=== PATIENT | male | born 1945 | race Caucasian/White ===

== ENCOUNTER 2020-10-25 10:41 | Inpatient (IN) | payer MEDICARE ==
[~2020-10-25] VITALS: Ht 172.7 cm; Wt 95.7 kg
[~2020-10-25 10:41] MED LIST: ASPIRIN EC81 MG PO; FLONASE 0.05% N16 GM; MULTI-VITAMIN1 EACH PO; PROTONIX40 MG PO; RANEXA500 MG PO; TYLENOL 325MG325 MG PO
[2020-10-25 11:39] LABS: HEMOGLOBIN 15.5 gm/dl (14.0-17.5); RED BLOOD COUNT 4.69 M/UL (4.20-5.50); WHITE BLOOD COUNT 12.6 K/UL (4.5-11.0)
[2020-10-25 13:21] LABS: BUN/CREATININE RATIO 11 (0-10)
--- NOTE | 2020-10-27 13:39 | NUR ---
SEVERAL ATTEMPTS TRIED BY TWO NURSES AND CANNOT GET PT SEPTUM AREA. DR. RAMACHANDRAN NOTIFIED
[2020-10-28 08:36] LABS: HEMOGLOBIN 16.3 gm/dl (14.0-17.5); RED BLOOD COUNT 4.94 M/UL (4.20-5.50); WHITE BLOOD COUNT 11.7 K/UL (4.5-11.0)
[2020-10-28 09:02] LABS: BUN/CREATININE RATIO 19 (0-10)
[2020-11-02] MEDS ORDERED: HYDROCODON-ACE1 EAC4 PO (11:02)
== END 2020-11-02 13:45 | disposition home or self-care (01) | DRG 342 ==
LOC: ER1 10:41 → CDU 15:07 → M/S 15:07
PROVIDERS: Emergency Medicine; ADMIT Surgery
PROC: 0DTJ4ZZ Resection of Appendix, Percutaneous Endoscopic Approach (ICD-10-PCS; principal; 2020-10-27)
DX: K35.891 Other acute appendicitis without perforation, with gangrene (principal); K56.7 Ileus, unspecified; R55 Syncope and collapse; Z83.3 Family history of diabetes mellitus
CPT/HCPCS: 36415; 70450; 71045; 80048; 80053; 82150; 82550; 82553; 83605; 83690; 83874; 84484; 85025; 85610; 85730; 93005; 94760; 96365; 96374; 96375; 96376; 97161; 99285; G0378; J1100; J2001; J2250; J2270; J2405; J2543; J2550; J2704; J2710; J3010; J7120; Q9967; U0002

== ENCOUNTER 2021-04-11 12:17 | Inpatient (IN) | payer MEDICARE ==
[~2021-04-11] VITALS: Ht 165.1 cm; Wt 80.3 kg
[~2021-04-11 12:17] MED LIST changes: +HYDROCODON-ACE1 EAC4 PO
[2021-04-11 13:06] LABS: HEMOGLOBIN 12.8 gm/dl (14.0-17.5); RED BLOOD COUNT 4.15 M/UL (4.20-5.50); WHITE BLOOD COUNT 11.5 K/UL (4.5-11.0)
[2021-04-11 13:33] LABS: BUN/CREATININE RATIO 14 (0-10)
[2021-04-12 06:53] LABS: HEMOGLOBIN 12.2 gm/dl (14.0-17.5); RED BLOOD COUNT 4.03 M/UL (4.20-5.50)
[2021-04-12 07:30] LABS: BUN/CREATININE RATIO 15 (0-10)
[2021-04-13 05:00] LABS: BORDETELLA PARAPERTUSSIS Not Detected (Not Detectd); BORDETELLA PERTUSSIS Not Detected (Not Detectd); CHLAMYDIA PNEUMONIAE Not Detected (Not Detectd); CORONAVIRUS HKU1 Not Detected (Not Detectd); CORONAVIRUS NL63 Not Detected (Not Detectd); CORONAVIRUS OC43 Not Detected (Not Detectd); CORONOAVIRUS 229E Not Detected (Not Detectd); HUMAN METAPNEUMOVIRUS Not Detected (Not Detectd); HUMAN RHINOVIRUS/ENTEROVIRUS Not Detected (Not Detectd); INFLUENZA A Not Detected (Not Detectd); INFLUENZA B Not Detected (Not Detectd); MYCOPLASMA PNEUMONIAE Not Detected (Not Detectd); PARAINFLUENZA VIRUS 1 Not Detected (Not Detectd); PARAINFLUENZA VIRUS 2 Not Detected (Not Detectd); PARAINFLUENZA VIRUS 3 Not Detected (Not Detectd); PARAINFLUENZA VIRUS 4 Not Detected (Not Detectd); RESPIRATORY SYNCYTIAL VIRUS Not Detected (Not Detectd)
[2021-04-13 05:55] LABS: SARS-CoV-2 NOT DETECTED (Not Detectd)
[2021-04-13 06:45] LABS: HEMOGLOBIN 12.2 gm/dl (14.0-17.5); RED BLOOD COUNT 3.98 M/UL (4.20-5.50)
[2021-04-13 07:09] LABS: BUN/CREATININE RATIO 16 (0-10)
[2021-04-14 06:55] LABS: HEMOGLOBIN 11.6 gm/dl (14.0-17.5); WHITE BLOOD COUNT 10.1 K/UL (4.5-11.0)
[2021-04-14 07:18] LABS: BUN/CREATININE RATIO 18 (0-10)
[2021-04-15 05:49] LABS: HEMOGLOBIN 12.2 gm/dl (14.0-17.5); RED BLOOD COUNT 4.07 M/UL (4.20-5.50); WHITE BLOOD COUNT 8.8 K/UL (4.5-11.0)
[2021-04-15 06:57] LABS: BUN/CREATININE RATIO 16 (0-10)
== END 2021-04-15 14:36 | disposition short-term general hospital (02) | DRG 862 ==
LOC: ER1 12:17 → M/S 18:41 → CDU 18:41 → M/S 22:39
PROVIDERS: Emergency Medicine; Internal Medicine; ADMIT Internal Medicine
PROC: B24BZZZ Ultrasonography of Heart with Aorta (ICD-10-PCS; principal; 2021-04-12)
DX: T81.49XA Infection following a procedure, other surgical site, initial encounter (principal); J18.9 Pneumonia, unspecified organism; K75.0 Abscess of liver; K65.1 Peritoneal abscess; L03.113 Cellulitis of right upper limb; K72.90 Hepatic failure, unspecified without coma; D64.9 Anemia, unspecified; G89.29 Other chronic pain; Z20.822 Contact with and (suspected) exposure to COVID-19; M54.9 Dorsalgia, unspecified; I07.1 Rheumatic tricuspid insufficiency; I95.1 Orthostatic hypotension; Y83.9 Surgical procedure, unspecified as the cause of abnormal reaction of the patient, or of later complication, without mention of misadventure at the time of the procedure; J43.9 Emphysema, unspecified; Z90.89 Acquired absence of other organs; Z87.891 Personal history of nicotine dependence; Z90.49 Acquired absence of other specified parts of digestive tract; Z98.890 Other specified postprocedural states
CPT/HCPCS: ECHO; 36415; 70450; 71045; 71046; 71100; 72125; 73030; 74150; 76705; 80048; 80053; 80061; 80202; 82550; 82553; 83036; 83605; 83735; 83874; 84439; 84443; 84484; 85025; 85027; 85379; 85610; 85730; 86140; 87040; 87070; 87205; 87633; 93005; 93306; 94640; 94664; 94760; 96372; 96374; 96375; 96376; 97110-GP-CQ; 97161; 99285; G0378; J1335; J1650; J1885; J2185; J2270; J2360; J2405; J3370; J7050; Q9967; U0002

== ENCOUNTER → 2021-05-03 | Outpatient (CLI) | payer MEDICARE | LOC: OPSV 14:29 | DX: L02.91 Cutaneous abscess, unspecified (principal) | CPT/HCPCS: 96365; J1335 ==

== ENCOUNTER → 2021-05-04 | Outpatient (CLI) | payer MEDICARE ==
[2021-05-04 14:57] LABS: HEMOGLOBIN 11.5 gm/dl (14.0-17.5); RED BLOOD COUNT 3.92 M/UL (4.20-5.50); WHITE BLOOD COUNT 7.7 K/UL (4.5-11.0)
[2021-05-04 15:22] LABS: BUN/CREATININE RATIO 21 (0-10)
== END ==
LOC: OPSV 14:09
PROVIDERS: Internal Medicine Infectious Disease
DX: L02.91 Cutaneous abscess, unspecified (principal); Z79.2 Long term (current) use of antibiotics
CPT/HCPCS: 80053; 85025; 85652; 86140; 96365; J1335

== ENCOUNTER → 2021-05-05 | Outpatient (CLI) | payer MEDICARE | LOC: OPSV 14:40 | DX: L02.91 Cutaneous abscess, unspecified (principal) | CPT/HCPCS: 96365; J1335 ==

== ENCOUNTER → 2021-05-06 | Outpatient (CLI) | payer MEDICARE | LOC: OPSV 14:30 | DX: L02.91 Cutaneous abscess, unspecified (principal) | CPT/HCPCS: 96365; J1335 ==

== ENCOUNTER → 2021-05-07 | Outpatient (CLI) | payer MEDICARE | LOC: OPSV 07:00 | DX: L02.91 Cutaneous abscess, unspecified (principal) | CPT/HCPCS: 96365; J1335 ==

== ENCOUNTER → 2021-05-08 | Outpatient (CLI) | payer MEDICARE | LOC: OPSV 07:00 | DX: L02.91 Cutaneous abscess, unspecified (principal) | CPT/HCPCS: 96365; J1335 ==

== ENCOUNTER → 2021-05-09 | Outpatient (CLI) | payer MEDICARE ==
[~2021-05-09] VITALS: Ht 172.7 cm; Wt 75.7 kg
== END ==
LOC: OPSV 14:16
DX: L02.91 Cutaneous abscess, unspecified (principal)
CPT/HCPCS: 96365; J1335